=== PATIENT | female | born 1935 | race Caucasian/White ===

== ENCOUNTER 2017-03-17 10:30 | Inpatient (IN) | payer MEDICAID, MEDICARE ==
[~2017-03-17] VITALS: Ht 157.5 cm; Wt 40.8 kg
[2017-03-17] MEDS ORDERED: ATOR40TA PO (10:46)
[2017-03-17] MEDS ORDERED: AMLO2.5T PO (10:46)
[2017-03-17] MEDS ORDERED: MULT1CAP34 PO (10:46)
[2017-03-17] MEDS ORDERED: LISI-603 PO (10:46)
[2017-03-17] MEDS ORDERED: OXYBUTYNIN PO (10:46)
[2017-03-17] MEDS ORDERED: SITA1TAB6 PO (10:46)
[2017-03-17 12:35] LABS: BASOPHILS # (AUTO) 0.1 K/uL (0.0-8.0); BASOPHILS % (AUTO) 0.6 % (0.0-2.0); EOSINOPHILS % (AUTO) 0.4 % (0.0-7.0); HEMATOCRIT 33.9 % (31.2-41.9); HEMOGLOBIN 11.3 g/dL (10.9-14.3); LYMPHOCYTES % (AUTO) 23.5 % (20.5-51.5); MEAN CORPUSCULAR HEMOGLOBIN 28.1 uug (24.7-32.8); MEAN CORPUSCULAR HGB CONC 33 g/dL (32.3-35.6); MEAN CORPUSCULAR VOLUME 84.3 fL (75.5-95.3); MONOCYTES # (AUTO) 0.6 K/uL (2.0-10.0); NEUTROPHILS # (AUTO) 5.7 K/uL (1.8-8.9); NEUTROPHILS % (AUTO) 68.5 % (38.5-71.5); PLATELET COUNT (AUTO) 274 K/uL (179-408); RED BLOOD CELL COUNT(AUTO) 4.03 MIL/uL (3.63-4.92); WHITE BLOOD COUNT (AUTO) 8.4 K/uL (3.8-11.8)
[2017-03-17 12:42] LABS: *BILIRUBIN,URIN NEGATIVE (NEGATIVE); *BLOOD, URINE NEGATIVE (NEGATIVE); *CLARITY,URINE CLEAR (CLEAR); *COLOR,URINE YELLOW (YELLOW); *KETONES,URINE TRACE (NEGATIVE); *PROTEIN,URINE NEGATIVE (NEGATIVE); *UROBILINOGEN,URINE 0.2 E.U./dl (NORMAL); LEUKOCYTE ESTERASE ,URINE NEGATIVE (NEGATIVE); NITRITE, URINE NEGATIVE (NEGATIVE); PH,URINE 7.5 (5.0-8.0); UGLUCOSE NEGATIVE (NEGATIVE)
[2017-03-17 12:45] LABS: CARBON DIOXIDE 26 mmol/L (21-32); CHLORIDE 105 mmol/L (98-107); CREATININE 0.9 mg/dL (0.6-1.3); GLUCOSE 161 mg/dL (74-106); UREA NITROGEN, BLOOD 9 mg/dL (7-18)
[2017-03-17 12:51] LABS: ALANINE AMINOTRANSFERASE 32 U/L (14-59); ALKALINE PHOSPHATASE 69 U/L (50-136); ASPARTATE AMINOTRANSFERASE 33 U/L (15-37); BILIRUBIN,TOTAL 0.3 mg/dL (0.2-1.0); TOTAL PROTEIN, SERUM 7.6 g/dL (6.4-8.2)
[2017-03-17 13:21] LABS: BACTERIA,URINE MANY /HPF (NONE SEEN); RBC,URINE 0-3 /HPF (0-3); SQUAMOUS EPITHELIAL CELL,UR FEW /HPF (NONE SEEN)
--- NOTE | 2017-03-17 13:50 | NUR ---
pt transfered to floor in stable condition, the pt daughter at bedside er stay. pt calm and comfortable, no sign of distress during er stay.
[2017-03-17 14:11] VITALS: BP 137/59
[2017-03-17] MEDS ORDERED: MORPHINE SULFATE 2 MG/1 ML DISP.SYRIN IV PRN ×2 (15:15)
[2017-03-17] MEDS ORDERED: DOCUSATE SODIUM 100 MG CAPSULE PO PRN (15:15)
[2017-03-17] MEDS ORDERED: LORAZEPAM 0.5 MG TABLET PO PRN (15:15)
[2017-03-17] MEDS ORDERED: ONDANSETRON 4 MG/2 ML VIAL IV PRN (15:15)
[2017-03-17] MEDS ORDERED: DEXTROSE 50% 50 ML DISP.SYRIN IV PRN (15:15)
[2017-03-17] MEDS ORDERED: NITROGLYCERIN 0.4 MG/TAB BOTTLE SL PRN (15:15)
[2017-03-17] MEDS ORDERED: ZOLPIDEM 5 MG TABLET PO PRN (15:15)
[2017-03-17] MEDS ORDERED: ACETAMINOPHEN 325 MG TABLET PO PRN (15:15)
[2017-03-17 15:19] VITALS: BP 137/59
[2017-03-17] MEDS ORDERED: LORAZEPAM 1 MG TABLET PO PRN (16:00)
[2017-03-17 16:15] VITALS: BP 137/59
--- NOTE | 2017-03-17 16:16 | NUR ---
pt arrived at 1430. pt vitals temp 98.4 hr 99 room air at 99% bp 137/59 no pain. used gunite mixer to do pertinent assessments. pt has scab on right forearm. iv site patent and intact. pt able to ambulate with cane and brp. pt is only swedish speaking. acknowledged all orders. will continue to monitor.
[2017-03-17] MEDS: BLOOD SUGAR DIAGNOSTIC 1 EACH STRIP VI SCH ×2 (16:59→21:10)
[2017-03-17] MEDS: INSULIN REGULAR, HUMAN 300 UNIT/3 ML VIAL SQ PRN (17:39)
[2017-03-17] MEDS: CARVEDILOL 25 MG TABLET PO SCH (17:46)
--- NOTE | 2017-03-17 17:52 | NUR ---
PT ON CLINICAL SERVICES ASSISTANT SINCE ARRIVAL. PT IS SUINUS RHYTHYM. NO SIGNS OF CHEST PAIN. PT SCD PUMPS APPLIED. MRSA SWAB SENT TO THE LAB. URINALYSIS SENT TO THE LAB. WILL CONTINUE TO MONITOR.
--- NOTE | 2017-03-17 18:51 | NUR ---
pt stable throughout the day. no loc changes. pt continued to be on monitor. sinus rhythm thoughout the day. pt had a bm and voided. urinalysis sent. pt able to ambulate with cane throughout day. new orders pending. insulin given per coverage. bp slightly elevated and given bp meds. pictures on chart. belongings list on chart. will endorse new orders to form layer nurse.
--- NOTE | 2017-03-17 19:30 | NUR ---
PT RECEIVED IN BED, ASLEEP. WAKES WHEN CALLED. A/OX3. PALESTIN[place] SPEAKING, BUT ABLE TO MAKE NEEDS KNOWN. V/S STABLE. IN NO ACUTE DISTRESS. NO C/O PAIN AT THIS TIME. NO C/O CHEST PAIN AT THIS TIME. SAFETY MEASURES IMPLEMENTED. BED ALARM ON. CALL LIGHT WITHIN REACH.
[2017-03-17 19:41] VITALS: BP 120/82
[2017-03-17] MEDS ORDERED: CARVEDILOL 3.125 MG TABLET PO SCH (21:00)
[2017-03-17] MEDS: ATORVASTATIN 40 MG TABLET PO SCH (21:06)
[2017-03-18 00:22] VITALS: BP 111/39
[2017-03-18 04:49] VITALS: BP 130/45
--- NOTE | 2017-03-18 06:00 | NUR ---
END OF SHIFT NOTES. PT SLEPT WELL THROUGHOUT SHIFT. IN STABLE CONDITION. SINUS SANTIAGO FROM 47-65 ON THE TELE MONITOR. IV INTACT AND PATENT. ALL NEEDS ATTENDED. SAFETY MAINTAINED. CALL LIGHT WITHIN REACH. Addendum: 03/18/17 at 0618 by TAYLOR BURTON RN WRONG TELE INFORMATION NOTED. PT WAS SINUS 56-82 ON THE TELE MONITOR.
[2017-03-18] MEDS: BLOOD SUGAR DIAGNOSTIC 1 EACH STRIP VI SCH ×4 (06:30→21:00)
[2017-03-18 06:58] LABS: BASOPHILS % (AUTO) 0.5 % (0.0-2.0); EOSINOPHILS # (AUTO) 0.1 K/uL (0.0-0.7); EOSINOPHILS % (AUTO) 1.2 % (0.0-7.0); HEMATOCRIT 30.9 % (31.2-41.9); HEMOGLOBIN 10.4 g/dL (10.9-14.3); LYMPHOCYTES # (AUTO) 2.6 K/uL (20.0-40.0); LYMPHOCYTES % (AUTO) 30.5 % (20.5-51.5); MEAN CORPUSCULAR HEMOGLOBIN 28.7 uug (24.7-32.8); MEAN CORPUSCULAR HGB CONC 34 g/dL (32.3-35.6); MEAN CORPUSCULAR VOLUME 85.2 fL (75.5-95.3); MONOCYTES # (AUTO) 0.7 K/uL (2.0-10.0); MONOCYTES % (AUTO) 8.2 % (0.0-11.0); NEUTROPHILS # (AUTO) 5.1 K/uL (1.8-8.9); NEUTROPHILS % (AUTO) 59.6 % (38.5-71.5); PLATELET COUNT (AUTO) 248 K/uL (179-408); RED BLOOD CELL COUNT(AUTO) 3.63 MIL/uL (3.63-4.92); WHITE BLOOD COUNT (AUTO) 8.5 K/uL (3.8-11.8)
[2017-03-18 07:31] LABS: AMYLASE 55 U/L (25-115); CARBON DIOXIDE 31 mmol/L (21-32); CHLORIDE 106 mmol/L (98-107); CREATININE 1.2 mg/dL (0.6-1.3); GLUCOSE 116 mg/dL (74-106); LIPASE 185 U/L (73-393); MAGNESIUM 1.8 mg/dL (1.8-2.4); PHOSPHOROUS 3.9 mg/dL (2.5-4.9); POTASSIUM 4.1 mmol/L (3.5-5.1); UREA NITROGEN, BLOOD 13 mg/dL (7-18)
[2017-03-18 07:43] LABS: *BILIRUBIN,URIN NEGATIVE (NEGATIVE); *BLOOD, URINE Trace-intact (NEGATIVE); *CLARITY,URINE CLOUDY (CLEAR); *COLOR,URINE YELLOW (YELLOW); *KETONES,URINE NEGATIVE (NEGATIVE); *PROTEIN,URINE NEGATIVE (NEGATIVE); *UROBILINOGEN,URINE 0.2 E.U./dl (NORMAL); LEUKOCYTE ESTERASE ,URINE 3+ (NEGATIVE); NITRITE, URINE NEGATIVE (NEGATIVE); UGLUCOSE NEGATIVE (NEGATIVE)
[2017-03-18 08:05] LABS: CHOLESTEROL 122 mg/dL (<200); HDL CHOLESTEROL 47 mg/dL (40-60); TRIGLYCERIDES 86 MG/DL (30-150)
--- NOTE | 2017-03-18 08:38 | NUR ---
PT SEEN ON ROUNDING. NO LOC CHANGES. PT ABLE TO AMBULATE TO THE BATHROOM BUT CONTINUES TO SHUFFLE. FALL PRECAUTIONS IMPLEMENTED. VITALS STABLE. NO SIGNS OF ACUTE DISTRESS. PT ATE BREAKFAST. SEE SLAB INSTALLER NOTES. NO NEW INJURIES NOTED. SALINE LOCK PATENT. NO SIGNS OF INFILTRATION. WILL CONTINUE TO MONITOR FOR DISTRESS.
[2017-03-18] MEDS ORDERED: Medication Not On Formulary EA (Multivitamins (Multivitamin) 1 EACH) PO SCH (09:00)
[2017-03-18] MEDS ORDERED: MULTIVIT, IRON, MIN NO. 8, FA TABLET PO SCH (09:00)
[2017-03-18] MEDS: LISINOPRIL 20 MG TABLET PO SCH (09:02)
[2017-03-18] MEDS: CARVEDILOL 25 MG TABLET PO SCH ×2 (09:02→18:03)
[2017-03-18] MEDS: ASPIRIN 81 MG TAB.CHEW PO SCH (09:02)
[2017-03-18] MEDS: AMLODIPINE 2.5 MG TABLET PO SCH (09:02)
[2017-03-18] MEDS: MULTIVITAMINS,THERAPEUTIC TABLET PO SCH (09:03)
[2017-03-18 09:59] LABS: BACTERIA,URINE MANY /HPF (NONE SEEN); SQUAMOUS EPITHELIAL CELL,UR FEW /HPF (NONE SEEN); WBC,URINE TNTC /HPF (0-3)
[2017-03-18 11:07] VITALS: BP 156/56
--- NOTE | 2017-03-18 12:01 | NUR ---
pt refused insulin shot. verbalizes risks and benefits. informed dr alena mahmood. will await orders.
[2017-03-18] MEDS: INSULIN REGULAR, HUMAN 300 UNIT/3 ML VIAL SQ PRN (12:35)
[2017-03-18 15:03] VITALS: BP 134/51
--- NOTE | 2017-03-18 19:08 | NUR ---
pt stable throughout the day. no signs of acute distress. bp slightly elevated but given bp meds as prescirbed. insulin given per sliding scale. pt assisted to the bathroom per supervision. pt ate meals with adequate hydration. no loc changes. will endorse new developments to janitorial supervisor nurse.
[2017-03-18] MEDS: ATORVASTATIN 40 MG TABLET PO SCH (20:57)
--- NOTE | 2017-03-18 21:00 | NUR ---
Patient refused blood sugar check. Patient is agitated and stating that she got her blood sugar checked a few hours ago and shes fine. She says that she is tired of having all of her fingers poked so often, and she does not want them poked again tonight
[2017-03-18 21:30] VITALS: BP 132/51
--- NOTE | 2017-03-19 07:30 | NUR ---
PT AWAKE SITTING UP IN BED, IN NO ACUTE DISTRESS. BS CHECKED, WNL. ALL SAFETY AND COMFORT MEASURES ATTENDED TOO, CALL LIGHT IN REACH, BED ALARM ON
[2017-03-19] MEDS: BLOOD SUGAR DIAGNOSTIC 1 EACH STRIP VI SCH ×2 (07:39→11:56)
[2017-03-19] MEDS: MULTIVITAMINS,THERAPEUTIC TABLET PO SCH (08:32)
[2017-03-19] MEDS: ASPIRIN 81 MG TAB.CHEW PO SCH (08:32)
[2017-03-19] MEDS: LISINOPRIL 20 MG TABLET PO SCH (08:33)
[2017-03-19 08:34] VITALS: BP 169/52
[2017-03-19] MEDS: CARVEDILOL 25 MG TABLET PO SCH (08:34)
[2017-03-19] MEDS: AMLODIPINE 2.5 MG TABLET PO SCH (08:34)
[2017-03-19] MEDS ORDERED: ASPI-605 PO (09:00)
[2017-03-19] MEDS: INSULIN REGULAR, HUMAN 300 UNIT/3 ML VIAL SQ PRN (12:02)
--- NOTE | 2017-03-19 12:30 | NUR ---
DISCHARGE PROTOCOL FOLLOWED. PICTURES TAKEN. DISCHARGE EDUCATION PROVIDED TO PATIENT AND DAUGHTER. VERBALIZED UNDERSTANDING. ALL BELONGINGS ACCOUNTED FOR. PT 1130 BS WAS 341, PRIOR TO BS CHECK, PT WAS EATING SNACKS, 8 UNITS OF HUMALIN WERE GIVEN. ADVISED PT TO WAIT 1 HOUR TO RECHECK BS BEFORE LEAVING. PT AND DAUGHTER AGREED. UPON RE ENTRY TO ROOM, PT WAS GONE. Addendum: 03/19/17 at 1234 by FLACA FITZGERALD RN IV WAS REMOVED WITH NO REDNESS OR IRRITATION PRIOR TO PAT LEAVING.
== END 2017-03-19 12:30 | disposition home or self-care (01) | DRG 198 ==
LOC: ER 10:30 → TELE 13:37 → MED 03-18 18:48
PROVIDERS: ADMIT Internal Medicine; ATTEND Internal Medicine
DX: I25.9 Chronic ischemic heart disease, unspecified (principal); E11.9 Type 2 diabetes mellitus without complications; I10 Essential (primary) hypertension; Z79.84 Long term (current) use of oral hypoglycemic drugs; Z79.899 Other long term (current) drug therapy; F17.200 Nicotine dependence, unspecified, uncomplicated; Z98.890 Other specified postprocedural states
CPT/HCPCS: 36415; 70030-TC; 71010; 83690; 83735; 84100; 85025; 85610; 85730; 93005; 93307; A4663; J1815